=== PATIENT | female | born 1990 | race African-American/Black ===

== ENCOUNTER 2016-06-23 02:51 | Emergency (ER) | payer BC, MEDICAID ==
[~2016-06-23] VITALS: Ht 170.2 cm; Wt 68.2 kg
[~2016-06-23 02:51] MED LIST: AMOXICILLIN 8751 TAB PO; CEPHALEXIN500 M1 PO; LEVAQUIN 5500 MG/TAB PO; METRONIDAZOLE500 MG PO; MOTRIN 800800 MG/TAB PO; NO HOME MEDICATIONS; PEPCID 20MG TAB20 MG PO; PREDNISONE20 MG PO; PRENATAL1 TA1 PO; PRENATAL1 TA7; PROMETHAZINE12.5 M5 PO; PYRIDIUM 100MG100 MG PO; ZOFRAN 4MG T4 MG/TAB PO
[2016-06-23 02:54] VITALS: TEMP 98.2
[2016-06-23] MEDS ORDERED: AMOXICILLIN 50500 MG PO (02:58)
[2016-06-23] MEDS ORDERED: CLEOCIN HC150 MG/CAP PO (03:25)
[2016-06-23] MEDS ORDERED: NORCO 325 MG-51 TAB PO (03:26)
[2016-06-23 04:00] VITALS: BP 135/88; PULSE 74
== END 2016-06-23 04:00 | disposition home or self-care (01) ==
LOC: COL.ER 02:51
DX: G89.18 Other acute postprocedural pain (principal); K08.409 Partial loss of teeth, unspecified cause, unspecified class; K08.89 Other specified disorders of teeth and supporting structures
CPT/HCPCS: J1170; J2550